=== PATIENT | female | born 1955 | race African-American/Black ===

== ENCOUNTER 2016-09-14 19:39 | Inpatient (IN) | payer MEDICARE ==
[~2016-09-14] VITALS: Ht 157.4 cm; Wt 90.8 kg
--- NOTE | ~2016-09-14 | WRIGHTHP ---
[place], [place] PATIENT HISTORY AND PHYSICAL EXAM NAME: [facility]O STILES [facility]: [id number] UNIT #: [id number] ROOM: 315 DOCTOR: GILDA RESENDIZ MD BIRTHDATE: [birth year] DOS: 09/15/2016 CHIEF COMPLAINT: "I just called the police to check on things in my house, I do not have any problems. I don't need to be here." HISTORY OF PRESENT ILLNESS: This is a 61-year-old black female who was sent here on an involuntary basis from [facility]. Apparently, the patient has been phoning the [employer] [facility] multiple times, and they sent a cruiser out to see her. She reports that people are tormenting her, and that there are bad people who are attempting to get into her house. They have been trying to tunnel under her house and shaking the entire house. The patient fears that these bad people are trying to harm her, and she just wanted the [employer] to look into this. They found her to be grossly paranoid and psychotic and brought her into the Emergency Room at [facility] [place], where again she continued to exhibit extreme mood lability and extreme paranoia. The patient does report that she has been told she has a paranoid schizophrenic, but states that she has no problems and this is an inaccurate diagnosis. She is admitted now to rule out organic factors to attempt to stabilize on medication with the ultimate plan to return her to the least restrictive environment when psychiatrically stable. PAST MEDICAL HISTORY: Remarkable for hypertension, neurogenic bladder, and trauma to her pelvis. MENTAL STATUS: The patient is alert and oriented to person, place and time. Mood does seem to be somewhat depressed with anxious overtones. Much of the anxiety is related to her paranoia regarding what is happening around her house. She is somewhat minimizing, however, and denies having any issues. On one hand, she is somewhat dismissive and did not want to talk. Yet she was very engaging and very talkative about what was happening around her house, and her fear about someone being able to check on her belongings and her animals. She was somewhat tangential at times, but did on her own varying herself in. Memory seems relatively intact. DIAGNOSIS: Schizoaffective disorder. PLAN: I had initially started her on Vraylar, which I will discontinue. I fear she is going to be noncompliant or episodically noncompliant with her medicines, so I will go ahead and start her on Invega. If she tolerates the Invega well, I can then load her with Invega Sustenna and then [facility] We will attempt to engage her in individual and parikh milieu activity with the ultimate plan to return home or the least restrictive environment when psychiatrically stable. [place], [place] PATIENT HISTORY AND PHYSICAL EXAM NAME: TANO STILES UNIT #: [id number] ROOM: [facility] DOCTOR: GILDA RESENDIZ MD BIRTHDATE: [birth year] GILDA RESENDIZ MD CM:HISPHYS:PATIENT HISTORY AND PHYSICAL EXAMINATION 9 4 GILDA RESENDIZ MD 09/15/16 0836 interface
--- NOTE | ~2016-09-14 | DS ---
[place], [place] DISCHARGE SUMMARY NAME: TANO STILES UNIT #: [id number] ROOM: 315 DOCTOR: GILDA RESENDIZ MD BIRTHDATE: [birth year] DOS: 09/19/2016 ADDENDUM CHIEF COMPLAINT: "Good morning doctor, don't worry about things, it's okay." SUMMARY OF THE VISIT: The patient was interviewed as she sat in the dining area, watching television. She was bright and pleasant upon approach. We had attempted to discharge yesterday, but we were unable to find a taxi service that was willing to take her. All of the taxi services and the ambulance companies flat out refused to take her without 24-hour notice. She took the news well and exhibited no agitation, aggression, mood lability or verbal or physical aggression. She was pleasant and bright in this morning. She reported feeling fine and was anxious to go home. She continues to basically be euthymic with some mild delusions present. MENTAL STATUS: She remains alert and oriented to self, place and time. Mood does seem to be fairly euthymic. Affect appropriate. Mild paranoia persists. Memory is intact. DIAGNOSIS: As per the dictation of 09/18/2016. DISPOSITION: As per the dictation of 09/18/2016. GILDA RESENDIZ MD CM:DISCHARG [id number] GILDA RESENDIZ MD 09/20/16 0953 interface
--- NOTE | ~2016-09-14 | PR ---
[place], [place] PROGRESS NOTE [id number] UNIT #: [id number] ROOM: 315 DOCTOR: GILDA RESENDIZ MD BIRTHDATE: [birth year] DOS: 09/16/2016 INTERVAL NOTE CHIEF COMPLAINT: "I am not crazy. I do not need any crazy medicine. The only problem with me is the work they are doing around my house." SUMMARY OF THE VISIT: The patient was interviewed as she sat in the dining area, fixing her hair and watching television. She stopped and engaged readily in conversation. She was bright and pleasant and very engaging. She once again denied needing any type of medication for psychiatric symptomatology stating that she is perfectly fine, reporting good sleep and appetite as well. There was no mood lability or agitation as she engaged in conversation with me. She did voice that she is just anxious for the pink slip to , so that she can be let out of the hospital and return back home to [facility]. MENTAL STATUS: She is alert and oriented to person, place and time. Mood seems fairly euthymic. Affect is fairly normal. Speech is normal rate and pattern. There is no demetria or hypomania. There are no overt auditory or visual hallucinations noted. There is some mild paranoia present as you talked to her more. Memory is intact. PLAN: I will go ahead and discontinue Invega. She has consistently refused to take it. I will try to get her to take Trilafon 8 mg at bedtime. She did report that she wanted something to help her sleep and this will do so. Screening examinations revealed her to have a low vitamin D level of 11.5, I will replace with vitamin D 10717 international units weekly, try to engage in individual and parikh milieu activity, returning home when stable. GILDA RESENDIZ MD CM:PNTRANS [id number] GILDA RESENDIZ MD 09/17/16 0354 interface
--- NOTE | ~2016-09-14 | PR ---
[place], [place] PROGRESS NOTE [id number] UN[facility] #: [id number] ROOM: 315 DOCTOR: GILDA RESENDIZ MD BIRTHDATE: [birth year] DOS: 09/17/2016 CHIEF COMPLAINT: "You need to tell that , I am not crazy, so he do not send me back here." SUMMARY OF THE VISIT: The patient was interviewed as she was doing crossword puzzles and watching television in the dining area. She stopped and engaged readily in conversation, reporting to me that she feels well, and she wants to prove to everyone she is not crazy. She has been pleasant and cooperative. She has taken her vitamin D because she was aware that it was low and was familiar with the pill. She, however, refused the Trilafon again stating she is not crazy and does not need crazy medicine. She has refused so in a polite manner and has not exhibited any mood lability or agitation. MENTAL STATUS: She is alert and oriented to person, place and time. Mood does at times seems labile, but she self redirects. There is an air of paranoia about her, but even this is not grossly out of proportion. There are no overt auditory or visual hallucinations noted and no voiced delusions. Memory is fairly intact. PLAN: At the present time, I will continue to monitor her behavior. If she continues to remain in control, we will look to discharge Sunday back to [place], [place]. GILDA RESENDIZ MD CM:PNTRANS [phone] GILDA RESENDIZ MD 09/17/162200 interface
--- NOTE | ~2016-09-14 | DS ---
[place], [place] DISCHARGE SUMMARY NAME: TANO STILES [facility] #: [id number] UNIT #: [id number] ROOM: 315 DOCTOR: GILDA RESENDIZ MD BIRTHDATE: [birth year] DOS: 09/18/2016 CHIEF COMPLAINT: "I just called the police to check on things in my house. I do not have any problems. I do not need to be here. I am not crazy." HISTORY OF PRESENT ILLNESS: This is a 61-year-old black female who was sent here on an involuntary basis from [facility]. Apparently, the patient has been phoning the [employer] multiple times, and they sent a cruiser out to see her. She reported that people were tormenting her, and they were trying to dig under her house, shaking the entire house. The patient was brought into the Emergency Room, where she was found to be very agitated and labile, and it was felt that she would benefit from further inpatient stay, so she was sent here on an involuntary basis to further evaluate and treat. PAST MEDICAL HISTORY: Remarkable for hypertension, neurogenic bladder, and trauma to her pelvis. SUMMARY OF THE VISIT: The patient was admitted to the unit, where she was noncompliant with all psychotropic medications, reporting "I have no problem, I am not schizophrenic, I am not psychotic". She did this in a very polite manner. At no point in time in her stay that she raised her voice. She did not become verbally abusive or physically threatening. She was pleasant and cooperative. She attended to her ADLs. She was able to eat and sleep well. She voiced no other paranoia and consistently asked when she would be able to return home. Given the fact that there were no symptoms suggestive of risk to harm to self and others, it was decided to discharge her home on 09/18/2016. MENTAL STATUS AT DISCHARGE: The patient is alert and oriented to person, place, and time. Mood is fairly euthymic. Affect appropriate. There is no symptom suggestive of demetria or hypomania. There are no auditory or visual hallucinations and memory was fully intact. DIAGNOSIS: Psychosis, not otherwise specified. PLAN: The patient did have a low vitamin D level upon admission, so I have E-scribed her vitamin D to [employer]. At this point because the patient does not represent a significant harm to self and others, I have no reason to continue the involuntary hospitalization. She will be discharged back to home and have followup per her family physician. [place], [place] DISCHARGE SUMMARY NAME: TANO STILES UNIT #: [id number] ROOM: [facility] DOCTOR: GILDA RESENDIZ MD BIRTHDATE: [birth year] GILDA RESENDIZ MD CM:DISCHARG [id number] GILDA RESENDIZ MD 09/18/16 1054 interface
[2016-09-14] MEDS ORDERED: GABAPENTIN600 MG PO (20:27)
[2016-09-14] MEDS ORDERED: CLONIDINE HCL0.1 MG PO (20:28)
[2016-09-14] MEDS ORDERED: MIRALAX POWDER255 G1 PO (20:28)
[2016-09-14] MEDS ORDERED: OXYCODONE HCL5 MG PO (20:29)
[2016-09-14 22:22] VITALS: BP 174/100
[2016-09-14 23:34] VITALS: BP 174/100
[2016-09-15 01:08] VITALS: BP 148/88
[2016-09-15 07:17] LABS: HEMOGLOBIN 11.7 g/dl (12.0-16.0); MEAN CELL VOLUME 74.2 fl (81.0-99.0); MEAN CORPUSCULAR HGB 22.9 pg (27.0-31.0); MEAN CORPUSCULAR HGB CONC 30.8 g/dl (33.0-37.0); PLATELET COUNT AUTOMATED 156 10*3/uL (130-400); RED BLOOD COUNT 5.12 10*6/uL (4.10-5.10); RED CELL DISTRI WIDTH 16.7 % (0-14.5); WHITE BLOOD COUNT 5.2 10*3/uL (4.8-10.8)
[2016-09-15 07:38] LABS: BASOPHIL # 0.1 10*3/uL (0-0.1); BASOPHILS 2 % (0-1); EOSINOPHIL # 0.2 10*3/uL (0-0.4); EOSINOPHILS 4 % (1-4); LYMPHOCYTE # 2.3 10*3/uL (1.3-4.4); MICROCYTOSIS SLIGHT; MONOCYTE # 0.2 10*3/uL (0.1-1.0); NEUTROPHIL # 2.4 10*3/uL (2.3-7.9); NEUTROPHILS 46 % (47-73); PLATELET SUFFICIENCY NORMAL (NORMAL); TOTAL CELLS COUNTED 100 #CELLS
[2016-09-15 07:44] LABS: ALBUMIN 3.1 gm/dl (3.1-4.5); BILIRUBIN, TOTAL 0.5 mg/dl (0.2-1.0); POTASSIUM 4.3 mmol/L (3.5-5.1)
[2016-09-15 07:57] LABS: THYROID STIM HORMONE (HS) 0.629 uIU/ml (0.358-4.75); TOTAL PROTEIN 6.5 gm/dL (6.4-8.2)
[2016-09-15 08:00] VITALS: BP 152/83
[2016-09-15 08:11] LABS: HEMOGLOBIN A1c 5.4 % (4.8-5.6)
[2016-09-15 08:18] LABS: FOLIC ACID 19.88 ng/mL (>5.38); VITAMIN D, 25-HYDROXY 11.5 ng/mL (30-100)
[2016-09-15 19:23] VITALS: BP 141/55
[2016-09-16 07:56] VITALS: BP 137/90
[2016-09-16 19:41] VITALS: BP 128/66
[2016-09-17 07:58] VITALS: BP 105/70
[2016-09-17 19:38] VITALS: BP 138/86
[2016-09-18 07:42] VITALS: BP 123/87
[2016-09-18] MEDS ORDERED: VITAMIN D50000 I3 PO (08:06)
[2016-09-18 11:14] LABS: BILIRUBIN NEGATIVE (NEGATIVE); BLOOD NEGATIVE (NEGATIVE); CLARITY CLOUDY (CLEAR); COLOR YELLOW (YELLOW); GLUCOSE NEGATIVE (NEGATIVE); KETONE NEGATIVE (NEGATIVE); LEUKO ESTERASE 2+ (NEGATIVE); NITRITE POSITIVE (NEGATIVE); PROTEIN TRACE (NEGATIVE); UROBILINOGEN 0.2 E.U./dl (0.2-1.0)
[2016-09-18 11:38] LABS: RBC 0-2 rbc/hpf (0-2)
[2016-09-18 11:39] LABS: TRIP PHOS CRYSTALS 1+; URINE REFLEX COMMENT YES (NO)
[2016-09-18 21:00] VITALS: BP 125/84
[2016-09-19 07:50] VITALS: BP 123/81
== END 2016-09-19 14:00 | disposition home or self-care (01) | DRG 885 ==
LOC: 3N 19:39
PROVIDERS: Psychiatry & Neurology Psychiatry
DX: F23 Brief psychotic disorder (principal); N31.9 Neuromuscular dysfunction of bladder, unspecified; I10 Essential (primary) hypertension; F17.200 Nicotine dependence, unspecified, uncomplicated; E66.09 Other obesity due to excess calories; Z87.828 Personal history of other (healed) physical injury and trauma; Z82.49 Family history of ischemic heart disease and other diseases of the circulatory system; Z79.1 Long term (current) use of non-steroidal anti-inflammatories (NSAID); Z79.899 Other long term (current) drug therapy; F25.9 Schizoaffective disorder, unspecified